=== PATIENT | male | born 1985 | race Caucasian/White ===

== ENCOUNTER 2022-12-24 10:57 | Day surgery (SDC) | payer BC, SELFPAY ==
[2022-12-24] VITALS (16 sets, daily range): BP systolic 109–131; BP diastolic 58–96; PULSE 75–86; RESP 14–16; TEMP 36.1–36.5; O2SAT 93–98; BMI 35.0
[2022-12-24] MEDS: LACTATED RINGERS 1000 ML 1,000 ML 100 ML IV (10:40)
[2022-12-24] MEDS: SODIUM CHLORIDE 0.9 % (FLUSH) 10 ML SYRINGE IVF (11:14)
[2022-12-24] MEDS: OXYMETAZOLINE 0.05% NASAL SPRAY 2 SPRAY NOSTRIL-B (11:48)
--- NOTE | 2022-12-24 12:14 | W.ANESCHARGE ---
Anesthesia Charges Start Date/Time Anesthesia Start Date: 12/24/22 Anesthesia Start Time: 12:53 Stop Date/Time Anesthesia Stop Date: 12/24/22 Anesthesia Stop Time: 13:35
[2022-12-24] MEDS: COCAINE HCL 4 % 4 ML SOLUTION NOSTRIL-B (13:05)
[2022-12-24] MEDS: BUPIVACAINE 0.5%/EPINEPHRINE 0.9 MG (30.9 ML) INJECTION (13:08)
--- NOTE | 2022-12-24 13:09 | W.ANESCHARGE ---
Anesthesia Charges Start Date/Time Anesthesia Start Date: 12/24/22 Anesthesia Start Time: 12:53 Stop Date/Time Anesthesia Stop Date: 12/24/22 Anesthesia Stop Time: 13:35
[2022-12-24] MEDS: ACETAMINOPHEN 325 MG TABLET PO (14:25)
[2022-12-24] MEDS: IBUPROFEN 200 MG TABLET PO (14:25)
--- NOTE | 2022-12-24 14:27 | W.PM.ENTPROC ---
Procedure Note Date of procedure: 12/24/22 Procedure: Preoperative diagnosis nasal obstruction, deviated septum Postoperative diagnosis same Procedure nasal septoplasty Under general endotracheal anesthesia patient was prepped and draped in usual fashion nose decongested injected. A right hemitransfixion incision was made and a limited anterior tunnel was created on the left side. This exposed to piece of redundant cartilage that had either been placed previously or was a result of previous surgery. This piece of cartilage was removed. I was then able to use a nasal speculum to push the majority of the posterior septum back to near midline. The hemitransfixion was closed with 2 4-0 chromic sutures and silastic stents secured with 3-0 nylon. The patient procedure well was taken recovery in satisfactory condition. Blood loss was less than 10 mL. Surgeon: Bang Chapa MD
== END 2022-12-24 16:20 | disposition home or self-care (01) ==
LOC: OR 10:57
PROVIDERS: Visit Provider Otolaryngology
PROC: (CPT 30520; principal; 2022-12-24 12:00)
DX: J34.2 Deviated nasal septum (principal); J34.89 Other specified disorders of nose and nasal sinuses
CPT/HCPCS: 30520; 00160; 00731; A9270; J0330; J2405; J2704; J3010; J7120